=== PATIENT | male | born 1980 | race African-American/Black ===

== ENCOUNTER 2023-07-25 10:45 | Outpatient (CLI) | payer OTHER ==
--- NOTE | 2023-07-26 08:41 | SLEEP CARE CONSULTATION ---
Information from patient questionnaire entered by Kay Salmon. I have reviewed and concur with the information entered by Kay Salmon. This document represents the service I personally performed and the decisions made by me, Ector Burton MD, [facility]. History of Present Illness Service Date and Time: 07/25/2023 1045 Reason for follow up: annual (LAST SEEN 03/2022) Equipment type: CPAP (RESMED SD CARD NEEDED) Prior sleep studies: Yes HPI additional information: Mr. Olivia was diagnosed with the sleep-disordered breathing at [facility] in [place] in August of 2019. The AHI was 21. He has a ResMed AirSense that is not using much this past year. 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 He then has sporadic use due to frequent upper respiratory symptoms. The patient has not gotten any supplies since he moved to [place]. He wears a full face mask. The compliance report shows that he uses the device 66 nights out of the past 365 nights, averaging 5.5 hours a night. He complains of no particular problem with the device such as soreness on the face, dry nose, epistaxis, nasal congestion or headache. He thinks that the pressure of 8 cmH2O is comfortable. On the CPAP therapy he notices improvement in his sleep quality, and that he wakes up feeling fresher in the morning and more awake/alert during the day. [place] Sleepiness Scale score is 10. The average residual AHI is 1.5 ; and average time in large leak per day is 0.5 minutes a night. Sleep Study - Results Prior sleep studies: Yes Subjective Initial [place] Sleepiness Scale score: 10 (03/22/2022) Allergies and Home Medications Drug allergies reviewed: Yes Home medication list reviewed: Yes Review of Systems Review of systems same as previous: Yes Physical Exam Vital signs obtained and entered by: KAY Cosme MA Blood Pressure: 125/87 (RIGHT ARM) Cuff size: long Heart Rate: 85 O2 Saturation: 100 Height: 5 ft 9 in Weight: 246 lb 9.6 oz Body Mass Index: 36.3 BMI Classification: Obese Impression and Plan IMPRESSION: 1. Obstructive Sleep Apnea-Hypopnea Syndrome, moderate, with the patient using his CPAP sporadically. He does need new supplies. He would like to get them from [employer] in [facility]. No adjustment is necessary today. PLAN: 1. Continue with autoCPAP set at 8 cm H2O. 2. Prescription made for supplies through [employer] 3. A [employer] SimPlus full face mask given to him. 4. Return in one year for follow up or earlier if there is any problem with the treatment. Counseling Topics: Weight loss health impact Prescriptions: Device supplies Follow up with Sleep Care in: 1 year Follow up recommended for: Weight management Visit Type: In Office Time Spent with Patient (minutes): 15 Provider Statement: I spent 100% of the Face to Face Visit with the patient with greater than 50% spent counseling the patient and coordination of care.
[2023-07-26 08:48] VITALS: BP 125/87; O2SAT 100
== END 2023-07-25 10:46 | disposition home or self-care (01) ==
LOC: SC 10:45
PROVIDERS: ATTEND Internal Medicine Pulmonary Disease
DX: G47.33 Obstructive sleep apnea (adult) (pediatric) (principal); E66.9 Obesity, unspecified; Z68.36 Body mass index [BMI] 36.0-36.9, adult
CPT/HCPCS: 99212

== ENCOUNTER 2023-08-24 12:40 | Emergency (ER) | payer OTHER ==
[2023-08-24 13:02] VITALS: O2SAT 99
[2023-08-24 14:04] LABS: BASOPHILS % (AUTO) 0.8 %; EOSINOPHILS # (AUTO) 0.1 10^3/uL (0.0-0.7); EOSINOPHILS % (AUTO) 1.8 %; HCT - HEMATOCRIT 42.6 % (42.0-52.0); HGB - HEMOGLOBIN 13.8 g/dL (14.0-18.0); LYMPHOCYTES # (AUTO) 1.6 10^3/uL (1.5-3.5); LYMPHOCYTES % (AUTO) 31.8 %; MEAN CORPUSCULAR HEMOGLOBIN 29.4 pg (27.0-31.0); MEAN CORPUSCULAR HGB CONC 32.4 g/dL (32.0-36.0); MEAN CORPUSCULAR VOLUME 90.6 fL (80.0-94.0); MEAN PLATELET VOLUME 10.7 fL (7.4-11.4); MONOCYTES # (AUTO) 0.4 10^3/uL (0.0-1.0); MONOCYTES % (AUTO) 8.9 %; NEUTROPHILS # (AUTO) 2.8 10^3/uL (1.5-6.6); NEUTROPHILS % (AUTO) 56.5 %; PLT - PLATELET COUNT 199 10^3/uL (130-450); RED CELL DISTRIBUTION WIDTH 12.4 % (12.0-15.0)
[2023-08-24 14:20] LABS: ALBUMIN 4.3 g/dL (3.2-5.5); ALBUMIN/GLOBULIN RATIO 1.5 (1.0-2.2); BILIRUBIN,TOTAL 0.9 mg/dL (0.2-1.0); CALCIUM 9.4 mg/dL (8.5-10.3); CREATININE 1.3 mg/dL (0.6-1.3); POTASSIUM 4.4 mmol/L (3.5-4.5); TOTAL PROTEIN 7.2 g/dL (6.4-8.9)
--- NOTE | 2023-08-24 14:45 | ED Physician Documentation ---
History of Present Illness - Stated complaint Stated Complaint: DIZZY/BACK PX - Chief complaint Chief Complaint: Neuro - Additonal information Additional information: 43-year-old gentleman with no significant past medical history presents [facility] today for dizziness. Patient says he was originally trying to get a [place] appointment with a nurse via telephone for his chronic back pain subsequently told her about his new dizziness he was experiencing and she advised him that he needs to come to the emergency department. Patient reports that he has been having chronic back pain since 2018 no significant injuries but feels like because of repetitive movement while in the [place] he is now having worsening back pain. Back pain does not feel different in comparison to his chronic back pain is not taking any medicine at home for this no Tylenol or ibuprofen. He is try to get an appoint with the [place] doctor to have this further evaluated. Patient reports the dizziness is a separate issue he says that this morning around 5 AM he woke up with sudden onset dizziness. He says that as he is sitting up in bed he feels like the room is spinning around him no emesis. He said that he is never experienced anything like that before denies any recent upper respiratory infections no history of allergies. Patient says when he tries to walk around he feels like the room is spinning around him and feels like his eyes are shaking with certain head movements. PD PAST MEDICAL HISTORY - Past Medical History Past Medical History: Yes Cardiovascular: Hypertension Respiratory: None Neuro: None Endocrine/Autoimmune: None GI: None : None HEENT: None Psych: None Musculoskeletal: Chronic back pain Derm: None - Present Medications Home Medications: Ambulatory Orders Medication Instructions Recorded Confirmed Meclizine HCl 12.5 mg PO TID PRN #14 tablet 08/24/23 - Allergies Allergies/Adverse Reactions: Allergies Allergy/AdvReac Type Severity Reaction Status Date / Time No Known Drug Allergies Allergy Verified 08/24/23 12:49 - Social History Does the pt smoke?: No Smoking Status: Never smoker Does the pt drink ETOH?: No Does the pt have substance abuse?: No - Immunizations Immunizations are current?: Yes PD ED PE NORMAL - Vitals Vital signs reviewed: Yes - General General: Alert and oriented X 3, No acute distress, Well developed/nourished - HEENT HEENT: Atraumatic, PERRL, EOMI, Other (no nystagmus) - Cardiac Cardiac: RRR, No murmur - Respiratory Respiratory: No respiratory distress, Clear bilaterally - Abdomen Abdomen: Normal bowel sounds - Back Back: No CVA TTP, No spinal TTP - Extremities Extremities: No deformity - Neuro Neuro: Alert and oriented X 3, No motor deficit, Normal speech Eye Opening: Spontaneous Motor: Obeys Commands Verbal: Oriented GCS Score: 15 Results - Vitals Vitals: Vital Signs - 24 hr 08/24/23 08/24/23 12:49 16:19 Temperature 36.8 C Heart Rate 79 64 Respiratory 16 16 Rate Blood Pressure 148/84 H 149/80 H O2 Saturation 99 99 Oxygen O2 Source Room air - Labs Labs: Laboratory Tests 08/24/23 08/24/23 14:01 14:01 WBC 5.0 RBC 4.70 Hgb 13.8 L Hct 42.6 MCV 90.6 MCH 29.4 MCHC 32.4 RDW 12.4 Plt Count 199 MPV 10.7 Neut # (Auto) 2.8 Lymph # (Auto) 1.6 [place] # (Auto) 0.4 Eos # (Auto) 0.1 Baso # (Auto) 0.0 Absolute Nucleated RBC 0.00 Nucleated RBC % 0.0 Sodium 138 Potassium 4.4 Chloride 105 Carbon Dioxide 29 Anion Gap 4.0 L BUN 17 Creatinine 1.3 Estimated GFR (MDRD) 73 L Glucose 95 Calcium 9.4 Total Bilirubin 0.9 AST 17 ALT 25 Alkaline Phosphatase 79 Total Protein 7.2 Albumin 4.3 Globulin 2.9 Albumin/Globulin Ratio 1.5 Lipase 56 PD Medical Decision Making - ED course ED course: This patient presents with dizziness, most consistent with a peripheral cause, likely BPPV. No history of recent infection so doubt vestibular neuritis. History not consistent with meniere's disease. No history of trauma. No red flag features for central vertigo to include gradual onset, vertical/bidirectional or non-fatigable nystagmus, focal neurologic findings on exam (including inability to ambulate, ataxia, dysmetria). Presentation not consistent with an acute HEATER INSTALLER infection, vertebral basilar artery insufficiency, cerebellar hemorrhage or infarction, intracranial mass or bleed.CBC complete no leukocytosis, very mild anemia hemoglobin 13.8. Chemistry does not reveal any electrolyte abnormaliti es, sodium 138, potassium 4.4 Patient reports that his vertigo symptoms have almost entirely resolved after 1 dose of p.o. meclizine. In regards to his chronic back pain he was given an IM dose of Toradol and also said that he felt significant improvement with this as well. A prescription of meclizine was sent to patient's preferred pharmacy he was told that he can use it up to 3 times a day for vertigo symptoms but that it is most important to go home and do Aakash's maneuver he was taught how to do this in the ER and also told how to find a video on YouTube to do Aakash's maneuver at home for his BPPV. Patient was told to follow-up with his PCP with [place] [facility] for further discussion and evaluation of his chronic back pain. Departure - Departure Disposition: Home, Self Care Clinical Impression: Chronic back pain Qualifiers: Back pain location: thoracic back pain Back pain laterality: bilateral Qualified Code(s): M54.6 - Pain in thoracic spine BPPV (benign paroxysmal positional vertigo) Qualifiers: Laterality: unspecified laterality Qualified Code(s): H81.10 - Benign paroxysmal vertigo, unspecified ear Instructions: Vertigo Paroxysmal Positional Prescriptions: Meclizine HCl 12.5 mg PO TID PRN #14 tablet PRN Reason: Dizziness Comments: Thank you for trusting us with your care I believe that the symptoms you are experiencing is something called benign paroxysmal peripheral vertigo also known as vertigo. 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 Most importantly please go on YouTube and watch YouTube videos on how to perform Aakash's maneuver at home. In regards to your chronic back pain you can alternate between Tylenol and ibuprofen but do not take ibuprofen for longer than 14 days in a row. Please follow[facility]up with [facility] to see if there is any further recommendations that they advised such as physical therapy or imaging. Please come back to the emergency department for started to experience any severe nausea vomiting, vision changes, weakness on one side of your body, or any other concerning symptoms. Forms: PCP List Discharge Date/Time: 08/24/23 16:19
[2023-08-24] MEDS ORDERED: KETOROLAC 30 MG/ML VIAL IM STA (15:04)
[2023-08-24] MEDS ORDERED: MECLIZINE 12.5 MG TABLET PO STA (15:05)
[2023-08-24 16:26] VITALS: BP 149/80
== END 2023-08-24 16:19 | disposition home or self-care (01) ==
LOC: ED 12:40
DX: H81.10 Benign paroxysmal vertigo, unspecified ear (principal); M54.6 Pain in thoracic spine; G89.29 Other chronic pain; I10 Essential (primary) hypertension
CPT/HCPCS: 36415; 80053; 83690; 85025; 96372; 99283; 99284; A9270